=== PATIENT | female | born 1985 | race American Indian/Alaskan Native ===

== ENCOUNTER 2021-11-22 15:38 | Inpatient (IN) | payer MEDICAID ==
[2021-11-22] MEDS ORDERED: METHYLERGONOVINE MALEATE 0.2 MG/ML VIAL IM PRN (18:16)
[2021-11-22] MEDS ORDERED: ONDANSETRON 4 MG/2 ML INJ IV PRN (18:16)
[2021-11-22] MEDS ORDERED: ePHEDrine SULFATE 50 MG/1 ML INJ IV PRN (18:16)
[2021-11-22] MEDS ORDERED: fentaNYL 100 MCG/2 ML INJ IV PRN (18:16)
[2021-11-22] MEDS ORDERED: LOPERAMIDE 2 MG CAP PO PRN (18:16)
[2021-11-22] MEDS ORDERED: MINERAL OIL 30 ML ORAL LIQD PO PRN (18:16)
[2021-11-22] MEDS ORDERED: BUTORPHANOL 2 MG/1 ML INJ IV PRN ×2 (18:16)
[2021-11-22] MEDS ORDERED: TERBUTALINE 1 MG/1 ML INJ SUB-Q PRN (18:16)
[2021-11-22] MEDS ORDERED: ACETAMINOPHEN 325 MG TAB PO PRN (18:16)
[2021-11-22] MEDS ORDERED: LIDOCAINE (2%) 20 MG/1 ML VIAL 20 ML MDV INFILTRATI ONE (18:16)
[2021-11-22] MEDS ORDERED: CARBOPROST TROMETHAMINE 250 MCG/1 ML INJ IM PRN (18:16)
[2021-11-22] MEDS ORDERED: OXYTOCIN 10 UNIT/1 ML INJ IM PRN (18:16)
[2021-11-22] MEDS ORDERED: miSOPROStol 200 MCG TAB PR PRN (18:16)
[2021-11-22] MEDS ORDERED: NalbUPHINE 10 MG/1 ML INJ IV PRN (18:16)
[2021-11-22] MEDS ORDERED: AMPICILLIN/NS 2 GM/100 ML 2 GM/100 ML BAG IV ONE (19:00)
[2021-11-22] MEDS ORDERED: OXYTOCIN DRIP 30 UNITS/500 ML BAG IV SCH ×2 (19:00)
[2021-11-22 19:25] LABS: Hematocrit 30.9 % (30.3-42.9); Hemoglobin 10.4 gm/dl (10.1-14.3); Mean Corpuscular HGB Conc 34 % (30-34); Mean Corpuscular Volume 89 fl (79-97); Platelet Count 237 K/mm3 (140-440); Red Blood Count 3.48 M/mm3 (3.65-5.03); Red Cell Distribution Width 13.8 % (13.2-15.2)
[2021-11-22] MEDS: LACTATED RINGERS 1,000 ML IV SCH (20:20)
[2021-11-22 21:54] LABS: Alanine Aminotransferase 8 units/L (7-56); Albumin 3.7 g/dL (3.9-5); BUN/Creatinine Ratio 11; Blood Urea Nitrogen 9 mg/dL (7-17); Calcium 8.7 mg/dL (8.4-10.2); Hemolysis Index 7; Uric Acid 5.9 mg/dL (3.5-7.6)
[2021-11-22] MEDS: miSOPROStol 25 MCG TAB PO SCH (22:02)
[2021-11-22 22:54] LABS: Mucus,Urine FEW /HPF
[2021-11-22 22:55] LABS: Color,Urine Yellow (Yellow)
[2021-11-22 22:56] LABS: Bilirubin,Urine NEG (Negative); Blood,Urine NEG (Negative); Protein,Urine <30 mg dL mg/dL (Negative)
[2021-11-22 23:00] LABS: Creatinine,Urine 180.8 mg/dL (0.1-20.0)
[2021-11-22] MEDS ORDERED: AMPICILLIN/NS 1 GM/50 ML 1 GM/50 ML BAG IV SCH (23:00)
--- NOTE | 2021-11-23 00:20 | History and Physical Report ---
History of Present Illness Date of examination: 11/22/21 Date of admission: 11/22/21 15:38 Chief complaint: Post due date History of present illness: 35-year-old at 41 weeks gestation presents to labor and delivery for induction of labor secondary to post due date. There is no vaginal bleeding. There is no leakage of fluid. There are occasional contractions. There is good movement. In labor and delivery, there were blood pressures that were >= 140/90. There are no headaches, diplopia, right upper quadrant pain, or scotomata. Preeclampsia labs were drawn. UPCR was not elevated, and there was no suspected proteinuria. As such, this patient would feel the contemporary criteria for gestational hypertension. Induction of labor was offered. The patient was counseled regarding the risk, alternatives, and benefits of induction of labor. She voiced understanding. She wished to proceed with induction of labor. The patient is admitted to labor and delivery for induction of labor. Past History Past Medical History: asthma Past Surgical History: no surgical history Family/Genetic History: hypertension Social history: no significant social history - Obstetrical History Expected Date of Delivery: 11/15/21 Actual Gestation: 41 Week(s) 1 Day(s) : 2 Para: 1 Number of Pregnancies: 1 Medications and Allergies Allergies Allergy/AdvReac Type Severity Reaction Status Date / Time No Known Allergies Allergy Unverified 11/22/21 18:16 Active Meds: Active Medications Acetaminophen (Acetaminophen 325 Mg Tab) 650 mg PO Q4H PRN PRN Reason: Pain, Mild (1-3) Butorphanol Tartrate (Butorphanol 2 Mg/1 Ml Inj) 1 mg IV Q2H PRN PRN Reason: Pain, Moderate(4-6) LABOR PAIN Butorphanol Tartrate (Butorphanol 2 Mg/1 Ml Inj) 2 mg IV Q2H PRN PRN Reason: Pain , Severe (7-10) Carboprost Tromethamine (Carboprost Tromethamine 250 Mcg/1 Ml Inj) 250 mcg IM ONCE PRN PRN Reason: Uterine Bleeding Ephedrine Sulfate (Ephedrine Sulfate 50 Mg/1 Ml Inj) 10 mg IV Q2M PRN PRN Reason: Hypotension Fentanyl (Fentanyl 100 Mcg/2 Ml Inj) 100 mcg IV Q2H PRN PRN Reason: Pain,Severe (7-10) LABOR PAIN Lactated Ringer's (Lactated Ringers) 1,000 mls @ 125 mls/hr IV DIRECT DENICE Last Admin: 11/22/21 20:20 Dose: 125 mls/hr Oxytocin/Sodium Chloride (Pitocin/Ns 30 Unit/500ml) 30 units in 500 mls @ 40 mls/hr IV TITR DENICE; Protocol Ampicillin Sodium (Ampicillin/Ns 1 Gm/50 Ml) 1 gm in 50 mls @ 100 mls/hr IV Q4H DENICE; Protocol Loperamide HCl (Loperamide 2 Mg Cap) 2 mg PO ONCE PRN PRN Reason: give with Hemabate Mineral Oil (Mineral Oil 30 Ml Oral Liqd) 30 ml PO QHS PRN PRN Reason: Constipation Misoprostol (Misoprostol 200 Mcg Tab) 800 mcg MS ONCE PRN PRN Reason: Uterine Bleeding Misoprostol (Misoprostol 25 Mcg Tab) 25 mcg PO Q4H DENICE Stop: 11/23/21 10:01 Last Admin: 11/22/21 22:02 Dose: 25 mcg Nalbuphine HCl (Nalbuphine 10 Mg/1 Ml Inj) 10 mg IV Q2H PRN PRN Reason: Pain, Moderate (4-6) Ondansetron HCl (Ondansetron 4 Mg/2 Ml Inj) 4 mg IV Q8H PRN PRN Reason: Nausea And Vomiting Oxytocin (Oxytocin 10 Unit/1 Ml Inj) 10 unit IM ONCE PRN PRN Reason: Uterine Bleeding Terbutaline Sulfate (Terbutaline 1 Mg/1 Ml Inj) 0.25 mg SUB-Q ONCE PRN PRN Reason: Hyperstimulation/Hypertonicity Review of Systems All systems: negative - Vital Signs Vital signs: Vital Signs Pulse Pulse Ox 80 98 11/22/21 16:37 11/22/21 16:37 Temp Pulse Resp BP Pulse Ox 98.6 F 80 143/85 99 11/22/21 16:49 11/23/21 00:14 11/22/21 23:43 11/23/21 00:14 - Physical Exam Breasts: Positive: normal Cardiovascular: Regular rate Lungs: Positive: Normal air movement Abdomen: Positive: normal appearance Genitourinary (Female): Positive: normal external genitalia, normal perenium Vulva: both: normal Vagina: Positive: normal moisture Uterus: Positive: enlarged Adnexa: both: normal Anus/Rectum: Positive: normal perianal skin, hemorrhoids Extremities: Positive: normal Deep Tendon Reflex Grade: Normal +2 - Obstetrical FHR: category 1 Uterine Contraction Monitor Mode: External Cervical Dilatation: 3 Cervical Effacement Percentage: 50 station: -3 Uterine Contraction Pattern: Irregular Results Result Diagrams: 11/22/21 16:50 11/22/21 16:50 Abnormal lab results 11/22/21 11/22/21 11/22/21 Range/Units 16:50 16:50 Unknown RBC 3.48 L (3.65-5.03) M/mm3 Carbon Dioxide 19 L (22-30) mmol/L Lactate Dehydrogenase 223 H (91-180) units/L Albumin 3.7 L (3.9-5) g/dL Urine Urobilinogen 8.0 H (<2.0) mg/dL Urine WBC (Auto) 14.0 H (0.0-6.0) /HPF Urine Creatinine (0.1-20.0) mg/dL Urine Total Protein (5-11.8) mg/dL 11/22/21 Range/Units Unknown RBC (3.65-5.03) M/mm3 Carbon Dioxide (22-30) mmol/L Lactate Dehydrogenase (91-180) units/L Albumin (3.9-5) g/dL Urine Urobilinogen (<2.0) mg/dL Urine WBC (Auto) (0.0-6.0) /HPF Urine Creatinine 180.8 H (0.1-20.0) mg/dL Urine Total Protein 36 H (5-11.8) mg/dL Urine Protein to Creatinine Ratio (UPCR)= 0.20 Estimated 24 hour urine protein= 214 mg Ultrasound: report reviewed, image reviewed Assessment and Plan - Patient Problems (1) 40 weeks gestation of Current Visit: Yes Status: Acute Plan to address problem: care is up-to-date at [facility]. GBS is unknown at this time. Morning shift nursing staff to call the office to obtain result. (2) Postmaturity , 40-42 weeks gestation Current Visit: Yes Status: Acute Plan to address problem: Plan is induction of labor. (3) Gestational hypertension Current Visit: Yes Status: Acute Plan to address problem: In labor and delivery, there were blood pressures that were >= 140/90. There are no headaches, diplopia, right upper quadrant pain, or scotomata. Preeclampsia labs were drawn. UPCR was not elevated, and there was no suspected proteinuria. As such, this patient would feel the contemporary criteria for gestational hypertension. Induction of labor was offered. (4) Encounter for induction of labor Current Visit: Yes Status: Acute Plan to address problem: Ripen cervix with Cytotec. 1 cervix becomes more favorable, start Pitocin and artificially rupture membranes.
[2021-11-23] MEDS ORDERED: BUTORPHANOL 2 MG/1 ML INJ IV PRN (00:22)
[2021-11-23] MEDS: miSOPROStol 25 MCG TAB PO SCH ×2 (02:02→06:25)
--- NOTE | 2021-11-23 02:48 | Ultrasound Report ---
ULTRASOUND OBSTETRIC INDICATION / CLINICAL INFORMATION: Post due date. Clinical Gestational Age (GA): 40 week 5 day TECHNIQUE: Transabdominal. COMPARISON: None available. FINDINGS: There is a single intrauterine . Biparietal Diameter = 9.4 cm = 38 weeks, 1 day(s). Head Circumference = 33.7 cm = 38 weeks, 4 day(s). Abdominal Circumference = 31.6 cm = 35 weeks, 4 day(s). Femur Length = 7.6 cm = 38 weeks, 6 day(s). Average Ultrasound Age (AUA) = 37 weeks, 6 day(s). Heart Rate: 152 beats per minute. Estimated Weight in grams (if calculated): 3097 +/- 458 Estimated Weight Growth Percentile (if calculated): Position: cephalic. Cervix: closed. Length in cm (if measured): Placenta: and free of the os. Amniotic Fluid Volume: normal Amniotic Fluid Index (ASHLY) in cm (if calculated): 7.7. Maternal Adnexa: No significant abnormality. IMPRESSION: 1. Single, living intrauterine with estimated sonographic age of 37 weeks, 6 day(s). 2. No significant sonographic abnormality. Signer Name: Juan Richard MD Signed: 11/23/2021 2:44 AM Workstation Name: [id number]
[2021-11-23] MEDS ORDERED: ONDANSETRON 4 MG/2 ML INJ ONE (06:58)
[2021-11-23] MEDS ORDERED: MINERAL OIL 30 ML ORAL LIQD ONE (08:52)
[2021-11-23] MEDS ORDERED: LIDOCAINE (2%) 20 MG/1 ML VIAL 20 ML MDV INFILTRATI ONE (09:03)
--- NOTE | 2021-11-23 11:31 | Procedure Note ---
OB Delivery Note - Delivery Date of Delivery: 11/23/21 Surgeon: MAY QUIGLEY Estimated blood loss: 200cc - Vaginal Delivery presentation: vertex Delivery position: OA Intrapartum events: gestational hypertension Delivery induction: misoprostol Delivery augmentation: rupture of membranes, pitocin Delivery monitor: external FHT, external uterine Route of delivery: Delivery placenta: spontaneous Delivery cord: 3 umbilical vessels Episiotomy: none Delivery laceration: 1st degree (periurethral), 2nd degree (perineal laceration) Delivery repair: chromic Anesthesia: local Delivery comments: Pt screaming and pushing at 9cm, AROM Clear and baby delivered. SAVD of viable female uncomplicated. Spontaneous delivery of intact placenta. Pt sustained 2nd degree perineal laceration and same repaired with 2-0 chromic running locked suture and 1st degree perineal laceration repaired with 2-0 chromic running continuous suture and lidocaine 2% used for pain relief. Cervix visualized and no lacerations seen. Bimanual exam done and clots removed. EBL 200cc. Mom and baby wnl. BP normal. Pt denies headache. - Infant A at 1 minute: 8 at 5 minutes: 9 Gender: Female (wt 3570g, clear amniotic fluid)
[2021-11-23] MEDS ORDERED: BENZOCAINE/MENTHOL 20/0.5% TOP SPRAY 56 GM TP PRN (13:00)
[2021-11-23] MEDS ORDERED: ONDANSETRON 4 MG/2 ML INJ IV PRN (13:00)
[2021-11-23] MEDS ORDERED: LANOLIN/ZINC/DIMETHICONE (LANSINOH) 7 GM TP PRN (13:00)
[2021-11-23] MEDS ORDERED: miSOPROStol 100 MCG TAB PR PRN (13:00)
[2021-11-23] MEDS ORDERED: CARBOPROST TROMETHAMINE 250 MCG/1 ML INJ IM PRN (13:00)
[2021-11-23] MEDS ORDERED: LOPERAMIDE 2 MG CAP PO PRN (13:00)
[2021-11-23] MEDS ORDERED: OXYTOCIN DRIP 30 UNITS/500 ML BAG IV SCH (13:00)
[2021-11-23] MEDS ORDERED: WITCH HAZEL/ GLYCERIN PAD TP PRN (13:00)
[2021-11-23] MEDS ORDERED: oxyCODONE /ACETAMINOPHEN 5-325MG TAB PO PRN (13:00)
[2021-11-23] MEDS ORDERED: diphenhydrAMINE 25 MG CAP PO PRN (13:00)
[2021-11-23] MEDS ORDERED: PROMETHAZINE 25 MG TAB PO PRN (13:00)
[2021-11-23] MEDS ORDERED: PROMETHAZINE 25 MG RECT SUPP PR PRN (13:00)
[2021-11-23] MEDS: LACTATED RINGERS 1,000 ML IV SCH (13:14)
[2021-11-23] MEDS: IBUPROFEN 800 MG TAB PO SCH (16:47)
[2021-11-23] MEDS: DOCUSATE SODIUM 100 MG CAP PO SCH (21:42)
[2021-11-23] MEDS ORDERED: HYDROCORTISONE 25 MG RECTAL SUPP PR PRN (22:00)
[2021-11-23] MEDS ORDERED: MAGNESIUM HYDROXIDE (MOM) ORAL LIQD UDC PO PRN (22:00)
[2021-11-24] MEDS: IBUPROFEN 800 MG TAB PO SCH ×4 (00:05→23:21)
[2021-11-24 00:40] LABS: Hematocrit 28.1 % (30.3-42.9); Hemoglobin 9.7 gm/dl (10.1-14.3)
--- NOTE | 2021-11-24 10:12 | Progress Note ---
Assessment and Plan PPD#1 doing well 1. pt declines discharge home today. Will do routine care and discharge home in the am Subjective Date of service: 11/24/21 Principal diagnosis: PPD#1 Interval history: pt has no complaints. pt plans to breast feed; vag bleed less than a period. Denies pelvic pain Objective - Constitutional Vitals: Vital Signs - 12hr 11/24/21 11/24/21 11/24/21 00:05 00:06 01:40 Temperature Pulse Rate 65 Respiratory Rate Blood Pressure 118/69 O2 Sat by Pulse Oximetry O2 Sat by Pulse 98 98 Oximetry [ Bilateral Throughout] 11/24/21 11/24/21 11/24/21 04:25 05:08 08:17 Temperature 98.3 F Pulse Rate 80 Respiratory 20 Rate Blood Pressure 143/79 O2 Sat by Pulse 98 Oximetry O2 Sat by Pulse 98 98 Oximetry [ Bilateral Throughout] General appearance: Present: no acute distress - Breasts Breasts: deferred - Cardiovascular Rhythm: regular Extremities: No edema - Gastrointestinal General gastrointestinal: Present: soft, non-tender - Genitourinary Female genitourinary: other (Fundus 2cm below umbilicus; non-tender) - Integumentary Integumentary: warm, dry - Neurologic Neurologic: moves all extremities - Psychiatric Psychiatric: cooperative - Labs CBC & Chem 7: 11/24/21 00:02 11/22/21 16:50 Labs: Abnormal lab results 11/24/21 Range/Units 00:02 Hgb 9.7 L (10.1-14.3) gm/dl Hct 28.1 L (30.3-42.9) % Medications & Allergies - Medications Allergies/Adverse Reactions: Allergies No Known Allergies Allergy (Unverified 11/22/21 18:16) Home Medications: Home Medications Medication Instructions Recorded Confirmed Last Taken Type No Known Home Medications [No 11/24/21 11/24/21 Unknown History Reported Home Medications] Active Medications: Generic Name Dose Route Start Last Admin Trade Name Freq PRN Reason Stop Dose Admin Acetaminophen 650 mg 11/22/21 18:16 Acetaminophen 325 Mg Tab PO Q4H PRN Pain, Mild (1-3) Benzocaine/Menthol 1 spray 11/23/21 13:00 Benzocaine/Menthol 20/0.5% Top Regan 56 Gm TP PRN PRN Episiotomy Pain Bisacodyl 10 mg 11/23/21 13:00 Bisacodyl 10 Mg Rect Supp AR BID PRN Constipation Carboprost Tromethamine 250 mcg 11/23/21 13:00 Carboprost Tromethamine 250 Mcg/1 Ml Inj IM ONCE PRN Uterine Bleeding Diphenhydramine HCl 25 mg 11/23/21 13:00 Diphenhydramine 25 Mg Cap PO Q6H PRN Itching Docusate Sodium 100 mg 11/23/21 22:00 11/23/21 21:42 Docusate Sodium 100 Mg Cap PO 100 mg BID DENICE Administration Hydrocortisone Acetate 25 mg 11/23/21 22:00 Hydrocortisone 25 Mg Rectal Supp AR BID PRN Hemorrhoids Lactated Ringer's 1,000 mls @ 125 mls/hr 11/22/21 18:30 11/23/21 13:14 Lactated Ringers IV 125 mls/hr DIRECT DENICE Administration Oxytocin/Sodium Chloride 30 units in 500 mls @ 40 mls/hr 11/23/21 13:00 Pitocin/Ns 30 Unit/500ml IV TITR DENICE Protocol Ibuprofen 800 mg 11/23/21 13:00 11/24/21 05:08 Ibuprofen 800 Mg Tab PO 800 mg Q6H DENICE Administration Labetalol HCl 100 mg 11/23/21 13:00 11/24/21 00:06 Labetalol 100 Mg Tab PO 100 mg BID DENICE Administration Loperamide HCl 2 mg 11/23/21 13:00 Loperamide 2 Mg Cap PO ONCE PRN give with Hemabate Magnesium Hydroxide 30 ml 11/23/21 22:00 Magnesium Hydroxide (Mom) Oral Liqd Udc PO HS PRN Constipation Misoprostol 800 mcg 11/23/21 13:00 Misoprostol 100 Mcg Tab AR ONCE PRN Uterine Bleeding Multi-Ingredient Ointment 1 applic 11/23/21 13:00 Lanolin/Zinc/Dimethicone (Lansinoh) 7 Gm TP PRN PRN Sore Nipples Multivitamins/Iron/Calcium 1 each 11/24/21 10:00 [id number] Fumarate-Folic Acid Vit Tab PO QDAY DENICE Ondansetron HCl 4 mg 11/23/21 13:00 11/23/21 12:51 Ondansetron 4 Mg/2 Ml Inj IV 4 mg Q8H PRN Administration Nausea And Vomiting Oxycodone/Acetaminophen 2 tab 11/23/21 13:00 Oxycodone /Acetaminophen 5-325mg Tab PO Q4H PRN Pain, Moderate (4-6) Promethazine HCl 25 mg 11/23/21 13:00 Promethazine 25 Mg Rect Supp AR Q6H PRN Nausea And Vomiting Promethazine HCl 25 mg 11/23/21 13:00 Promethazine 25 Mg Tab PO Q6H PRN Nausea And Vomiting Sodium Chloride 10 ml 11/23/21 13:00 11/23/21 12:53 Sodium Chloride 0.9% 10 Ml Flush Syringe IV 10 ml PRN PRN Administration flush Witch Mariia/Glycerin 1 each 11/23/21 13:00 Witch Mariia/ Glycerin Pad TP PRN PRN Hemorrhoid/cleansing/soothing
[2021-11-24] MEDS: DOCUSATE SODIUM 100 MG CAP PO SCH ×2 (10:32→23:21)
[2021-11-24] MEDS: PRENATAL VIT27-FE FUMARATE-FOLIC ACID VIT TAB PO SCH (10:32)
[2021-11-25] MEDS: IBUPROFEN 800 MG TAB PO SCH ×2 (05:20→11:15)
--- NOTE | 2021-11-25 05:22 | Progress Note ---
Assessment and Plan PPD#2 doing well 1. Discharge pt home Subjective Date of service: 11/25/21 Principal diagnosis: PPD#2 Interval history: pt has no complaints and wants to go home early Objective - Constitutional Vitals: Vital Signs - 12hr 11/24/21 11/24/21 11/24/21 20:20 21:45 23:20 Temperature 98.2 F Pulse Rate 73 Respiratory 20 Rate Blood Pressure 126/79 O2 Sat by Pulse 99 Oximetry O2 Sat by Pulse 98 98 98 Oximetry [ Bilateral Throughout] 11/24/21 11/25/21 11/25/21 23:21 01:20 03:32 Temperature Pulse Rate Respiratory Rate Blood Pressure 126/79 O2 Sat by Pulse Oximetry O2 Sat by Pulse 98 98 Oximetry [ Bilateral Throughout] 11/25/21 05:18 Temperature Pulse Rate Respiratory Rate Blood Pressure O2 Sat by Pulse Oximetry O2 Sat by Pulse 98 Oximetry [ Bilateral Throughout] General appearance: Present: no acute distress Extremities: No edema - Gastrointestinal General gastrointestinal: Present: soft - Genitourinary Female genitourinary: other (fundus firm below umbilicus) - Integumentary Integumentary: warm, dry - Neurologic Neurologic: moves all extremities - Psychiatric Psychiatric: cooperative - Labs CBC & Chem 7: 11/24/21 00:02 11/22/21 16:50 Medications & Allergies - Medications Allergies/Adverse Reactions: Allergies No Known Allergies Allergy (Unverified 11/22/21 18:16) Home Medications: Home Medications Medication Instructions Recorded Confirmed Last Taken Type No Known Home Medications [No 11/24/21 11/24/21 Unknown History Reported Home Medications] Active Medications: Generic Name Dose Route Start Last Admin Trade Name Freq PRN Reason Stop Dose Admin Acetaminophen 650 mg 11/22/21 18:16 Acetaminophen 325 Mg Tab PO Q4H PRN Pain, Mild (1-3) Benzocaine/Menthol 1 spray 11/23/21 13:00 Benzocaine/Menthol 20/0.5% Top [place] 56 Gm TP PRN PRN Episiotomy Pain Bisacodyl 10 mg 11/23/21 13:00 Bisacodyl 10 Mg Rect Supp CO BID PRN Constipation Carboprost Tromethamine 250 mcg 11/23/21 13:00 Carboprost Tromethamine 250 Mcg/1 Ml Inj IM ONCE PRN Uterine Bleeding Diphenhydramine HCl 25 mg 11/23/21 13:00 Diphenhydramine 25 Mg Cap PO Q6H PRN Itching Docusate Sodium 100 mg 11/23/21 22:00 11/24/21 23:21 Docusate Sodium 100 Mg Cap PO 100 mg BID DENICE Administration Hydrocortisone Acetate 25 mg 11/23/21 22:00 Hydrocortisone 25 Mg Rectal Supp CO BID PRN Hemorrhoids Lactated Ringer's 1,000 mls @ 125 mls/hr 11/22/21 18:30 11/23/21 13:14 Lactated Ringers IV 125 mls/hr DIRECT DENICE Administration Oxytocin/Sodium Chloride 30 units in 500 mls @ 40 mls/hr 11/23/21 13:00 Pitocin/Ns 30 Unit/500ml IV TITR [facility] Protocol Ibuprofen 800 mg 11/23/21 13:00 11/25/21 05:20 Ibuprofen 800 Mg Tab PO 800 mg Q6H DENICE Administration Labetalol HCl 100 mg 11/23/21 13:00 11/24/21 23:21 Labetalol 100 Mg Tab PO 100 mg BID DENICE Administration Loperamide HCl 2 mg 11/23/21 13:00 Loperamide 2 Mg Cap PO ONCE PRN give with Hemabate Magnesium Hydroxide 30 ml 11/23/21 22:00 Magnesium Hydroxide (Mom) Oral Liqd Udc PO HS PRN Constipation Misoprostol 800 mcg 11/23/21 13:00 Misoprostol 100 Mcg Tab CO ONCE PRN Uterine Bleeding Multi-Ingredient Ointment 1 applic 11/23/21 13:00 Lanolin/Zinc/Dimethicone (Lansinoh) 7 Gm TP PRN PRN Sore Nipples Multivitamins/Iron/Calcium 1 each 11/24/21 10:00 11/24/21 10:32 [id number] Fumarate-Folic Acid Vit Tab PO 1 each QDAY DENICE Administration Ondansetron HCl 4 mg 11/23/21 13:00 11/23/21 12:51 Ondansetron 4 Mg/2 Ml Inj IV 4 mg Q8H PRN Administration Nausea And Vomiting Oxycodone/Acetaminophen 2 tab 11/23/21 13:00 11/24/21 18:40 Oxycodone /Acetaminophen 5-325mg Tab PO 2 tab Q4H PRN Administration Pain, Moderate (4-6) Promethazine HCl 25 mg 06/10/22 13:00 Promethazine 25 Mg Rect Supp CO Q6H PRN Nausea And Vomiting Promethazine HCl 25 mg 11/23/21 13:00 Promethazine 25 Mg Tab PO Q6H PRN Nausea And Vomiting Sodium Chloride 10 ml 11/23/21 13:00 11/23/21 12:53 Sodium Chloride 0.9% 10 Ml Flush Syringe IV 10 ml PRN PRN Administration flush Witch Mariia/Glycerin 1 each 11/23/21 13:00 Witch Mariia/ Glycerin Pad TP PRN PRN Hemorrhoid/cleansing/soothing
--- NOTE | 2021-11-25 05:30 | Discharge Summary ---
Providers - Providers Date of Admission: 11/22/21 18:17 Date of discharge: 11/25/21 Attending physician: MAY QUIGLEY Primary care physician: MAY QUIGLEY Hospitalization Reason for admission: IUP at term, other (gestational HTN) Delivery: Episiotomy: none Laceration: 1st degree Other procedures: none Discharge diagnosis: IUP at term delivered baby: female Hospital course: Term preg with gestational HTN, had SAVD uncomplicated and course uneventful Condition at discharge: Good Disposition: 01 HOME / SELF CARE / HOMELESS Plan - Provider Discharge Summary Additional instructions: [] Smoking cessation referral if applicable(refer to patient education folder for contact #) [] Refer to [facility]'s [facility] Booklet Call your doctor immediately for: * Fever > 100.5 * Heavy vaginal bleeding ( >1 pad per hour) * Severe persistent headache * Shortness of breath * Reddened, hot, painful area to leg or breast * Drainage or odor from incision. * Keep incision clean and dry at all times and follow doctor's instructions regarding bathing/showering - Follow up plan Follow up: MAY QUIGLEY MD [Primary Care Provider] - 6 Weeks
[2021-11-25 09:59] VITALS: BP 153/77
[2021-11-25] MEDS: DOCUSATE SODIUM 100 MG CAP PO SCH (10:27)
[2021-11-25] MEDS: PRENATAL VIT27-FE FUMARATE-FOLIC ACID VIT TAB PO SCH (10:27)
== END 2021-11-25 12:45 | disposition home or self-care (01) | DRG 775 ==
LOC: LD 15:38 → UNDOADMIN 15:38 → OB 18:17 → LD 11-23 12:11 → OB 11-23 12:11
PROVIDERS: ADMIT Obstetrics & Gynecology; ATTEND Obstetrics & Gynecology
PROC: 10E0XZZ Delivery of Products of Conception, External Approach (ICD-10-PCS; principal; 2021-11-23)
PROC: 10907ZC Drainage of Amniotic Fluid, Therapeutic from Products of Conception, Via Natural or Artificial Opening (ICD-10-PCS; 2021-11-23)
PROC: 0KQM0ZZ Repair Perineum Muscle, Open Approach (ICD-10-PCS; 2021-11-23)
PROC: 0UQMXZZ Repair Vulva, External Approach (ICD-10-PCS; 2021-11-23)
DX: O48.0 Post-term pregnancy (principal); Z37.0 Single live birth; Z3A.41 41 weeks gestation of pregnancy; Z20.822 Contact with and (suspected) exposure to COVID-19; O13.4 Gestational [pregnancy-induced] hypertension without significant proteinuria, complicating childbirth; O99.52 Diseases of the respiratory system complicating childbirth; J45.909 Unspecified asthma, uncomplicated; Z82.49 Family history of ischemic heart disease and other diseases of the circulatory system; O70.1 Second degree perineal laceration during delivery; O71.82 Other specified trauma to perineum and vulva
CPT/HCPCS: 36415; 76816; 80053; 81001; 82570; 83615; 84156; 84550; 85014; 85018; 85027; 86592; 86850; 86900; 86901; 87086; G0378; J3490; J0290; J0595; J2405; J2590; J7120; U0003